=== PATIENT | female | born 1940 | race Caucasian/White ===

== ENCOUNTER 2016-10-01 23:58 | Inpatient (IN) | payer OTHER ==
[~2016-10-01] VITALS: Ht 157.5 cm; Wt 91.0 kg
[~2016-10-01 23:58] MED LIST: ADVAIR 500/501 DISK IH; ASPIR 8181 M1 PO; AVAPRO150 MG PO; AVAPRO300 MG PO; BACTRIM,SEPT1 TABLET PO; BYETTA10 MCG/0.0 SQ; CEFTIN500 MG PO; CELEXA20 MG PO; CIPRO500 MG PO; DITROPAN XL10 MG PO; DONEPEZIL HCL5 MG PO; ERGOCALCIF50000 UNIT PO; FLONASE16 G1 BOTH NARES; FLONASE16 G1 NS; FUROSEMIDE20 MG PO; GLIMEPIRIDE2 MG PO; GLUCOPHAGE1000 MG PO; GLUCOPHAGE500 MG PO; INDOMETHACIN50 MG PO; JANUVIA25 M1 PO; LANTUS 3 M100 UNITS1 SC; LEVETIRACETAM250 MG PO; LEVOTHYROXINE50 MCG PO; LIPITOR20 MG PO; METOPROLOL TAR100 MG PO; NAPROSYN500 MG PO; NEXIUM20 MG PO; NEXIUM40 MG PO; NOVOLOG 10100 UNITS/ SC; OMEPRAZOLE40 M1 PO; PROAIR HFA8.5 GM IH; PYRIDIUM200 MG PO; SINGULAIR10 MG PO; SPIRIVA1 INHALATI IH; SYMBICORT60 INHALAT IH; SYNTHROID100 MCG PO; THEO-DUR,THEOC200 MG PO; THEOPHYLLINE A200 M1 PO; TIROSINT100 MCG PO; TOVIAZ8 MG PO; TYLENOL ARTHRI650 MG PO; ULTRAM50 MG PO; VITAMIN D50000 UNI1 PO; VYTORIN 10-401 EACH PO
[2016-10-02 00:48] LABS: HEMATOCRIT 46.9 % (36.0-46.0); MCH 29.3 PG (29.0-34.0); MCHC 33.5 G/DL (30.0-36.0); MCV 87.7 FL (83-99); MEAN PLAT.VOLUME 11.4 uM^3 (9.5-12.4); PLATELET COUNT 117 K/uL (156-360); RBC DIS.WIDTH-CV 14.5 % (11.8-14.6); RBC DIS.WIDTH-SD 45.6 % (39-53); RED BLOOD COUNT 5.35 M/uL (3.80-5.20); WHITE BLOOD COUNT 9.3 K/uL (4.1-10.2)
[2016-10-02 00:56] LABS: CHLORIDE 101 mEq/L (99-109); POTASSIUM 4.1 mEq/L (3.7-5.4); SODIUM 138 mEq/L (136-147)
[2016-10-02 00:59] LABS: GLUCOSE 264 mg/dL (70-99)
[2016-10-02 01:00] LABS: ANION GAP 13 MEQ/L (2-14)
[2016-10-02 01:01] LABS: INTER. NORMALIZED RATIO 1.1; PROTHROMBIN TIME 11.6 (9.2-11.2); PTT 20.7 (25-32); TOTAL BILIRUBIN 0.7 mg/dL (0.0-1.0)
[2016-10-02 01:02] LABS: ALKALINE PHOSPHATASE 86 IU/L (3-129); GFR ESTIMATE (CALCULATED) > 59 mL/min/
[2016-10-02 01:03] LABS: UREA NITROGEN (BUN) 12 mg/dL (9-23)
[2016-10-02 01:06] LABS: LIPASE 7 U/L (1.0-51.0)
[2016-10-02 01:08] LABS: TROP-I INTERPRETATION NEGATIVE; TROPONIN-I < 0.01 ng/mL (0.0-0.30)
[2016-10-02 01:39] LABS: ADD MIUA? YES; BILIRUBIN NEGATIVE; BLOOD LARGE; COLOR YELLOW ((YELLOW)); GLUCOSE (STRIP) >=500; KETONES 20; LEUKOCYTES LARGE; NITRITE NEGATIVE; PROTEIN (STRIP) 30; SPECIFIC GRAVITY 1.015 (1.000-1.030); UROBILINOGEN 0.2 MG/DL (0.2-1.0)
[2016-10-02 01:50] LABS: BACTERIA 1+ /HPF; EPITHELIAL CELLS NONE SEEN /HPF; MUCUS TRACE /LPF; RED BLOOD CELLS 40-50 /HPF (0-5); UCUL ADDED? YES; WHITE BLOOD CELLS TNTC /HPF (0-5)
[2016-10-02 08:00] VITALS: BP 156/88
[2016-10-02 09:33] LABS: POINT-OF-CARE METER ID UU13113807
[2016-10-02 12:00] VITALS: BP 153/79
[2016-10-02 12:41] LABS: POINT-OF-CARE METER ID UU13113807
[2016-10-02] MEDS ORDERED: LIPITOR10 MG PO (13:30)
[2016-10-02] MEDS ORDERED: NOVOLIN,HU100 UNITS/ SC (13:38)
[2016-10-02] MEDS ORDERED: NORTRIPTYLINE H10 MG PO (13:39)
[2016-10-02] MEDS ORDERED: CORTIZONE-10 PL57 GM TP (13:39)
[2016-10-02 16:00] VITALS: BP 141/69
[2016-10-02 16:55] LABS: POINT-OF-CARE METER ID UU13113807
[2016-10-02 20:30] VITALS: BP 117/63
[2016-10-02 21:35] LABS: POINT-OF-CARE METER ID UU13113807
[2016-10-03] VITALS (7 sets, daily range): BP systolic 124–166; BP diastolic 64–77
[2016-10-03 08:14] LABS: HEMATOCRIT 44.2 % (36.0-46.0); MCV 87.7 FL (83-99); MEAN PLAT.VOLUME 10.3 uM^3 (9.5-12.4); RBC DIS.WIDTH-CV 14.6 % (11.8-14.6); RBC DIS.WIDTH-SD 46.5 % (39-53); RED BLOOD COUNT 5.04 M/uL (3.80-5.20); WHITE BLOOD COUNT 7.2 K/uL (4.1-10.2)
[2016-10-03 08:18] LABS: PLATELET COUNT 156 K/uL (156-360)
[2016-10-03 08:31] LABS: POINT-OF-CARE METER ID UU13113807
[2016-10-03 08:33] LABS: ALKALINE PHOSPHATASE 73 IU/L (3-129); ANION GAP 9 MEQ/L (2-14); CHLORIDE 103 MEQ/L (99-109); GFR ESTIMATE (CALCULATED) > 59 mL/min/; GLUCOSE 224 mg/dL (70-99); HDL CHOLESTEROL 26 MG/DL (Desirable>=50); LDL CHOLESTEROL 40 mg/dL (Desirable<100); NON-HDL CHOLESTEROL 108 mg/dL (Desirable<160); POTASSIUM 4.2 MEQ/L (3.7-5.4); SAMPLE HEMOLYSIS CHECK 0; SAMPLE ICTERIC CHECK 0; SAMPLE LIPEMIA CHECK 0; SODIUM 135 MEQ/L (136-147); TOTAL BILIRUBIN 0.7 MG/DL (0.0-1.0); TOTAL CHOLESTEROL 134 mg/dL (Desirable<200); TRIGLYCERIDES 342 MG/DL (Normal: <150); UREA NITROGEN (BUN) 8 mg/dL (9-23)
[2016-10-03 09:10] LABS: Estimated Average Glucose 226 mg/dL (70-123); HEMOGLOBIN A1c (GLYCOHEMOGLOB) 9.5 % HGB (Below 5.7)
[2016-10-03 12:33] LABS: POINT-OF-CARE METER ID UU13113807
[2016-10-03 16:23] LABS: POINT-OF-CARE METER ID UU13113807
[2016-10-03 21:13] LABS: POINT-OF-CARE METER ID UU13113807
[2016-10-04 04:09] VITALS: BP 153/69
[2016-10-04 07:35] LABS: MCH 29.1 PG (29.0-34.0); MCV 88.1 FL (83-99); MEAN PLAT.VOLUME 10.4 uM^3 (9.5-12.4); NRBC (%) 0.3 /100 WBC (0-0); PLATELET COUNT 152 K/uL (156-360); RBC DIS.WIDTH-CV 14.5 % (11.8-14.6); RBC DIS.WIDTH-SD 46.8 % (39-53); RED BLOOD COUNT 4.54 M/uL (3.80-5.20); WHITE BLOOD COUNT 6.3 K/uL (4.1-10.2)
[2016-10-04 08:01] LABS: ANION GAP 7 MEQ/L (2-14); CHLORIDE 106 MEQ/L (99-109); GFR ESTIMATE (CALCULATED) > 59 mL/min/; GLUCOSE 210 mg/dL (70-99); POTASSIUM 4.1 MEQ/L (3.7-5.4); SAMPLE HEMOLYSIS CHECK 0; SAMPLE ICTERIC CHECK 0; SAMPLE LIPEMIA CHECK 0; SODIUM 136 MEQ/L (136-147); UREA NITROGEN (BUN) 9 mg/dL (9-23)
[2016-10-04 08:30] VITALS: BP 136/66
[2016-10-04 08:30] LABS: POINT-OF-CARE METER ID UU13113807
[2016-10-04 12:25] LABS: POINT-OF-CARE METER ID UU13113807
[2016-10-04 12:30] VITALS: BP 130/72
[2016-10-04 16:48] LABS: POINT-OF-CARE METER ID UU13113807
[2016-10-04 16:55] VITALS: BP 129/74
[2016-10-04 20:27] VITALS: BP 133/65
[2016-10-04 21:26] LABS: POINT-OF-CARE METER ID UU13113807
[2016-10-04 21:36] LABS: C DIFF TOXIN NEGATIVE (NEGATIVE)
[2016-10-04 21:39] LABS: PROBE CHECK PASS; SPECIMEN PROCESSING CONTROL PASS
[2016-10-04 23:53] VITALS: BP 140/60
[2016-10-05 04:17] VITALS: BP 147/77
[2016-10-05 06:29] LABS: POINT-OF-CARE METER ID UU13113807
[2016-10-05 07:34] LABS: HEMATOCRIT 41.5 % (36.0-46.0); MCH 29.2 PG (29.0-34.0); MCHC 33.7 G/DL (30.0-36.0); MCV 86.6 FL (83-99); MEAN PLAT.VOLUME 10.3 uM^3 (9.5-12.4); PLATELET COUNT 155 K/uL (156-360); RBC DIS.WIDTH-CV 14.4 % (11.8-14.6); RBC DIS.WIDTH-SD 45.3 % (39-53); RED BLOOD COUNT 4.79 M/uL (3.80-5.20); WHITE BLOOD COUNT 6.8 K/uL (4.1-10.2)
[2016-10-05 07:49] VITALS: BP 145/73
[2016-10-05 07:57] LABS: ANION GAP 7 MEQ/L (2-14); CHLORIDE 106 MEQ/L (99-109); GFR ESTIMATE (CALCULATED) > 59 mL/min/; GLUCOSE 184 mg/dL (70-99); POTASSIUM 3.8 MEQ/L (3.7-5.4); SAMPLE HEMOLYSIS CHECK 0; SAMPLE ICTERIC CHECK 0; SAMPLE LIPEMIA CHECK 0; SODIUM 137 MEQ/L (136-147); UREA NITROGEN (BUN) 7 mg/dL (9-23)
[2016-10-05 12:00] VITALS: BP 184/90
[2016-10-05 12:36] LABS: POINT-OF-CARE METER ID UU13113807; POINT-OF-CARE USER ID 606021404
[2016-10-05 16:00] VITALS: BP 137/85
[2016-10-05 16:58] LABS: POINT-OF-CARE METER ID UU13113807; POINT-OF-CARE USER ID 606021404
[2016-10-05 20:00] VITALS: BP 182/85
[2016-10-05 21:41] LABS: POINT-OF-CARE METER ID UU13113807
[2016-10-06] VITALS (7 sets, daily range): BP systolic 150–197; BP diastolic 76–94
[2016-10-06 08:18] LABS: POINT-OF-CARE METER ID UU13113807; POINT-OF-CARE USER ID 606021404
[2016-10-06 11:52] LABS: POINT-OF-CARE METER ID UU13113807; POINT-OF-CARE USER ID 606021404
[2016-10-06 17:05] LABS: POINT-OF-CARE METER ID UU13113807
[2016-10-06 21:35] LABS: POINT-OF-CARE METER ID UU13113807
[2016-10-07 03:20] VITALS: BP 174/85
[2016-10-07 08:00] VITALS: BP 161/73
[2016-10-07 08:26] LABS: POINT-OF-CARE METER ID UU13113807
[2016-10-07 11:56] LABS: POINT-OF-CARE METER ID UU13113807
[2016-10-07 12:03] VITALS: BP 149/73
[2016-10-07] MEDS ORDERED: BACTRIM,SEPT1 TABLET PO (13:52)
[2016-10-07] MEDS ORDERED: FLUCONAZOLE100 MG PO (13:52)
[2016-10-07] MEDS ORDERED: LIPITOR10 MG PO (13:53)
[2016-10-07] MEDS ORDERED: HALDOL2 MG PO (13:53)
[2016-10-07] MEDS ORDERED: DOCUSATE SODIU100 MG PO (13:54)
[2016-10-07] MEDS ORDERED: FAMOTIDINE20 MG PO (13:54)
[2016-10-07] MEDS ORDERED: FLORASTOR250 MG PO (13:54)
[2016-10-07] MEDS ORDERED: NOVOLOG PE100 UNITS/ SC (13:55)
[2016-10-07 15:06] VITALS: BP 165/80
== END 2016-10-07 15:48 | DRG 872 ==
LOC: EME → EDBD 23:58 → EME 23:58 → EDOF 10-02 04:33 → 4SOUTH 10-02 04:33
PROVIDERS: Emergency Medicine; Hospitalist; Internal Medicine; Internal Medicine Infectious Disease
DX: A41.9 Sepsis, unspecified organism (principal); N39.0 Urinary tract infection, site not specified; E87.2 Acidosis; N13.2 Hydronephrosis with renal and ureteral calculous obstruction; E11.65 Type 2 diabetes mellitus with hyperglycemia; E66.01 Morbid (severe) obesity due to excess calories; J44.9 Chronic obstructive pulmonary disease, unspecified; E86.0 Dehydration; I10 Essential (primary) hypertension; E78.5 Hyperlipidemia, unspecified; I25.10 Atherosclerotic heart disease of native coronary artery without angina pectoris; F01.50 Vascular dementia, unspecified severity, without behavioral disturbance, psychotic disturbance, mood disturbance, and anxiety; B36.9 Superficial mycosis, unspecified; R32 Unspecified urinary incontinence; E03.9 Hypothyroidism, unspecified; G40.909 Epilepsy, unspecified, not intractable, without status epilepticus; Z68.36 Body mass index [BMI] 36.0-36.9, adult; Z66 Do not resuscitate; Z90.49 Acquired absence of other specified parts of digestive tract; Z95.5 Presence of coronary angioplasty implant and graft; I25.2 Old myocardial infarction; Z86.73 Personal history of transient ischemic attack (TIA), and cerebral infarction without residual deficits
CPT/HCPCS: 70450; 71020; 71250; 73502; 74000; 74176; 80048; 80053; 80061; 81003; 82948; 83036; 83605; 83690; 84484; 85027; 85610; 85730; 87040; 87086; 87106; 87493; 92523 GN; 93005; 99202; 99281; 99285; J0696; J1630; J1644; J1815; J1956; J2060; J7030; J7050

== ENCOUNTER 2016-11-20 12:44 | Inpatient (IN) | payer OTHER ==
[~2016-11-20] VITALS: Ht 152.4 cm; Wt 93.5 kg
[~2016-11-20 12:44] MED LIST changes: +CORTIZONE-10 PL57 GM TP; +DOCUSATE SODIU100 MG PO; +FAMOTIDINE20 MG PO; +FLORASTOR250 MG PO; +FLUCONAZOLE100 MG PO; +HALDOL2 MG PO; +LIPITOR10 MG PO; +NORTRIPTYLINE H10 MG PO; +NOVOLIN,HU100 UNITS/ SC; +NOVOLOG PE100 UNITS/ SC
[2016-11-20 14:33] LABS: EOSINOPHIL (%) 0.1 % (0-5); HEMATOCRIT 44.3 % (36.0-46.0); IMMATURE GRANULOCYTE (%) 0.2 % (0.0-0.7); INSTRUMENT ABS NEUTROPHIL CT 6.6 K/uL; MCH 29.4 PG (29.0-34.0); MCV 89.3 FL (83-99); MEAN PLAT.VOLUME 11.3 uM^3 (9.5-12.4); MONOCYTE (%) 8.3 % (3-12); MONOCYTE COUNT 0.7 K/uL (0-0.8); NEUTROPHIL (%) 79.1 % (45-76); NEUTROPHIL COUNT 6.6 K/uL (1.8-6.4); PLATELET COUNT 165 K/uL (156-360); RBC DIS.WIDTH-CV 15.5 % (11.8-14.6); RBC DIS.WIDTH-SD 50.7 % (39-53); RED BLOOD COUNT 4.96 M/uL (3.80-5.20); WHITE BLOOD COUNT 8.3 K/uL (4.1-10.2)
[2016-11-20 14:43] LABS: CHLORIDE 102 mEq/L (99-109); POTASSIUM 3.8 mEq/L (3.7-5.4); SODIUM 136 mEq/L (136-147)
[2016-11-20 14:45] LABS: GLUCOSE 285 mg/dL (70-99)
[2016-11-20 14:46] LABS: ANION GAP 9 MEQ/L (2-14)
[2016-11-20 14:47] LABS: TOTAL BILIRUBIN 0.9 mg/dL (0.0-1.0)
[2016-11-20 14:49] LABS: ALKALINE PHOSPHATASE 89 IU/L (3-129); GFR ESTIMATE (CALCULATED) > 59 mL/min/
[2016-11-20 14:50] LABS: UREA NITROGEN (BUN) 14 mg/dL (9-23)
[2016-11-20 14:51] LABS: ADD MIUA? YES; BILIRUBIN NEGATIVE; BLOOD LARGE; COLOR YELLOW ((YELLOW)); GLUCOSE (STRIP) >=500; KETONES NEGATIVE; LEUKOCYTES LARGE; NITRITE POSITIVE; PROTEIN (STRIP) 30; SPECIFIC GRAVITY 1.016 (1.000-1.030); UROBILINOGEN 0.2 MG/DL (0.2-1.0)
[2016-11-20 15:22] LABS: BACTERIA 3+ /HPF; CASTS NONE SEEN /LPF; CRYSTALS NONE SEEN; EPITHELIAL CELLS RARE /HPF; MUCUS NONE SEEN /LPF; RED BLOOD CELLS 15-20 /HPF (0-5); UCUL ADDED? YES; WHITE BLOOD CELLS TNTC /HPF (0-5)
[2016-11-20] MEDS ORDERED: LIPITOR40 MG PO (16:13)
[2016-11-20] MEDS ORDERED: SYMBICORT60 INHALAT IH (16:17)
[2016-11-20] MEDS ORDERED: OMEPRAZOLE40 M1 PO (16:17)
[2016-11-20] MEDS ORDERED: DONEPEZIL HCL5 MG PO (16:18)
[2016-11-20] MEDS ORDERED: FUROSEMIDE20 MG PO (16:18)
[2016-11-20] MEDS ORDERED: TYLENOL ARTHRI650 MG PO (16:18)
[2016-11-20] MEDS ORDERED: METFORMIN HCL1000 MG PO (16:19)
[2016-11-20] MEDS ORDERED: ADVIL200 MG PO (16:19)
[2016-11-20 19:00] VITALS: BP 150/71
[2016-11-20 19:03] VITALS: BP 150/71
[2016-11-20 20:12] LABS: POINT-OF-CARE METER ID UU14174225
[2016-11-21] VITALS: BP 130/69
[2016-11-21 00:07] LABS: POINT-OF-CARE METER ID UU14174225
[2016-11-21 04:00] VITALS: BP 118/56
[2016-11-21 08:01] VITALS: BP 108/58
[2016-11-21 11:25] VITALS: BP 126/64
[2016-11-21 12:06] LABS: POINT-OF-CARE METER ID UU14188625
[2016-11-21 14:55] VITALS: BP 110/86
[2016-11-21 16:52] LABS: POINT-OF-CARE METER ID UU14188625
[2016-11-21 20:00] VITALS: BP 110/86
[2016-11-22] VITALS (7 sets, daily range): BP systolic 108–142; BP diastolic 55–78
[2016-11-22 12:24] LABS: POINT-OF-CARE METER ID UU14174225
[2016-11-22 14:21] LABS: C DIFF TOXIN NEGATIVE (NEGATIVE)
[2016-11-22 14:23] LABS: PROBE CHECK PASS; SPECIMEN PROCESSING CONTROL PASS
[2016-11-22 21:11] LABS: POINT-OF-CARE METER ID UU14174225
[2016-11-23 03:43] VITALS: BP 127/73
[2016-11-23 07:58] VITALS: BP 120/63
[2016-11-23 11:53] VITALS: BP 110/65
[2016-11-23] MEDS ORDERED: NOVOLIN,HU100 UNITS/ SC (14:22)
== END 2016-11-23 16:13 | disposition home or self-care (01) | DRG 948 ==
LOC: EME → EDBD 12:44 → 5SOUTH 15:42 → EDOF 15:42 → 5SOUTH 18:58
PROVIDERS: Emergency Medicine; Internal Medicine; Physician Assistant Medical
DX: R41.82 Altered mental status, unspecified (principal); N30.00 Acute cystitis without hematuria; E87.2 Acidosis; R65.10 Systemic inflammatory response syndrome (SIRS) of non-infectious origin without acute organ dysfunction; I10 Essential (primary) hypertension; F03.90 Unspecified dementia, unspecified severity, without behavioral disturbance, psychotic disturbance, mood disturbance, and anxiety; E11.9 Type 2 diabetes mellitus without complications; Z66 Do not resuscitate; R09.02 Hypoxemia; I25.10 Atherosclerotic heart disease of native coronary artery without angina pectoris; G30.8 Other Alzheimer's disease; R41.0 Disorientation, unspecified; Z87.440 Personal history of urinary (tract) infections; E78.5 Hyperlipidemia, unspecified; K21.9 Gastro-esophageal reflux disease without esophagitis; J45.909 Unspecified asthma, uncomplicated; J44.9 Chronic obstructive pulmonary disease, unspecified; E03.9 Hypothyroidism, unspecified; E56.9 Vitamin deficiency, unspecified; Z95.5 Presence of coronary angioplasty implant and graft; Z79.4 Long term (current) use of insulin
CPT/HCPCS: 71010; 80053; 81003; 82948; 83605; 85025; 87040; 87077; 87086; 87186; 87493; 94640; 94640 76; 94760; 94799; 99281; 99284; J0696; J1644; J1815; J7030; J7050

== ENCOUNTER 2017-03-08 00:31 | Emergency (ER) | payer OTHER ==
[~2017-03-08] VITALS: Ht 152.4 cm; Wt 90.9 kg
[~2017-03-08 00:31] MED LIST changes: +ADVIL200 MG PO; +LIPITOR40 MG PO; +METFORMIN HCL1000 MG PO
[2017-03-08 00:57] LABS: HEMATOCRIT 41.8 % (36.0-46.0); MCH 28.4 PG (29.0-34.0); MCHC 32.5 G/DL (30.0-36.0); MCV 87.3 FL (83-99); MEAN PLAT.VOLUME 10.2 uM^3 (9.5-12.4); PLATELET COUNT 203 K/uL (156-360); RBC DIS.WIDTH-CV 14.6 % (11.8-14.6); RBC DIS.WIDTH-SD 46.4 % (39-53); RED BLOOD COUNT 4.79 M/uL (3.80-5.20)
[2017-03-08 01:04] LABS: CHLORIDE 100 mEq/L (99-109); SODIUM 136 mEq/L (136-147)
[2017-03-08 01:06] LABS: GLUCOSE 314 mg/dL (70-99)
[2017-03-08 01:08] LABS: ANION GAP 11 MEQ/L (2-14); TOTAL BILIRUBIN 0.5 mg/dL (0.0-1.0)
[2017-03-08 01:10] LABS: ALKALINE PHOSPHATASE 133 IU/L (3-129); GFR ESTIMATE (CALCULATED) > 59 mL/min/
[2017-03-08 01:11] LABS: UREA NITROGEN (BUN) 13 mg/dL (9-23)
[2017-03-08 03:07] LABS: LIPASE 12 U/L (1.0-51.0)
[2017-03-08 03:10] LABS: TROP-I INTERPRETATION NEGATIVE; TROPONIN-I < 0.01 ng/mL (0.0-0.30)
[2017-03-08 04:55] LABS: ADD MIUA? YES; BILIRUBIN NEGATIVE; BLOOD LARGE; COLOR YELLOW ((YELLOW)); GLUCOSE (STRIP) 50; KETONES NEGATIVE; LEUKOCYTES LARGE; NITRITE POSITIVE; PROTEIN (STRIP) 30; SPECIFIC GRAVITY 1.016 (1.000-1.030); UROBILINOGEN 0.2 MG/DL (0.2-1.0)
[2017-03-08 05:13] LABS: WHITE BLOOD CELLS 30-40 /HPF (0-5)
[2017-03-08 05:14] LABS: BACTERIA 3+ /HPF; EPITHELIAL CELLS NONE SEEN /HPF; MUCUS NONE SEEN /LPF; UCUL ADDED? YES
[2017-03-08 05:33] LABS: POINT-OF-CARE METER ID UU13113747
[2017-03-08] MEDS ORDERED: MUPIROCIN22 GM TP (05:58)
[2017-03-08] MEDS ORDERED: CIPRO500 MG PO (05:59)
[2017-03-08 06:19] VITALS: BP 127/78
== END 2017-03-08 06:19 | disposition home or self-care (01) ==
LOC: EME 00:31
PROVIDERS: Emergency Medicine
DX: N30.91 Cystitis, unspecified with hematuria (principal); E11.65 Type 2 diabetes mellitus with hyperglycemia; S31.109A Unspecified open wound of abdominal wall, unspecified quadrant without penetration into peritoneal cavity, initial encounter; X58.XXXA Exposure to other specified factors, initial encounter; F03.90 Unspecified dementia, unspecified severity, without behavioral disturbance, psychotic disturbance, mood disturbance, and anxiety; I10 Essential (primary) hypertension; J44.9 Chronic obstructive pulmonary disease, unspecified; E03.9 Hypothyroidism, unspecified; E78.5 Hyperlipidemia, unspecified; Z90.710 Acquired absence of both cervix and uterus; Z95.5 Presence of coronary angioplasty implant and graft; Z86.73 Personal history of transient ischemic attack (TIA), and cerebral infarction without residual deficits; Z87.440 Personal history of urinary (tract) infections; Z79.84 Long term (current) use of oral hypoglycemic drugs; Z79.82 Long term (current) use of aspirin
CPT/HCPCS: 70450; 71020; 80048; 80053; 81003; 82948; 83690; 83880; 84484; 85027; 87077; 87086; 87186; 93005; 99281; 99285

== ENCOUNTER 2017-07-19 16:04 | Observation (INO) | payer OTHER ==
[~2017-07-19] VITALS: Ht 149.9 cm; Wt 88.0 kg
[~2017-07-19 16:04] MED LIST changes: +MUPIROCIN22 GM TP
[2017-07-19 21:19] LABS: APPEARANCE CLOUDY ((CLEAR)); BILIRUBIN NEGATIVE; BLOOD LARGE; COLOR YELLOW ((YELLOW)); GLUCOSE (STRIP) NEGATIVE; KETONES 20; LEUKOCYTES LARGE; NITRITE NEGATIVE; PROTEIN (STRIP) 100; SPECIFIC GRAVITY 1.016 (1.000-1.030); UROBILINOGEN 0.2 MG/DL (0.2-1.0)
[2017-07-19 21:37] LABS: BACTERIA 1+ /HPF; EPITHELIAL CELLS 1+ /HPF; MUCUS RARE /LPF; RED BLOOD CELLS TNTC /HPF (0-5); UCUL ADDED? YES; WHITE BLOOD CELLS TNTC /HPF (0-5)
[2017-07-19 21:46] LABS: HEMATOCRIT 42.5 % (36.0-46.0); HEMOGLOBIN 14.6 G/DL (11.9-15.5); MCH 29.7 PG (29.0-34.0); MCHC 34.4 G/DL (30.0-36.0); MCV 86.6 FL (83-99); PLATELET COUNT 174 K/uL (156-360); RBC DIS.WIDTH-CV 14.6 % (11.8-14.6); RBC DIS.WIDTH-SD 45.7 % (39-53); RED BLOOD COUNT 4.91 M/uL (3.80-5.20); WHITE BLOOD COUNT 8.3 K/uL (4.1-10.2)
[2017-07-19 21:55] LABS: CHLORIDE 105 mEq/L (99-109); POTASSIUM 4.3 mEq/L (3.7-5.4); SODIUM 138 mEq/L (136-147)
[2017-07-19 21:57] LABS: GLUCOSE 169 mg/dL (70-99); TOTAL PROTEIN 7.3 g/dL (6.4-8.3)
[2017-07-19 21:59] LABS: TOTAL BILIRUBIN 0.8 mg/dL (0.0-1.0)
[2017-07-19 22:01] LABS: ALKALINE PHOSPHATASE 78 IU/L (3-129); CREATININE 0.7 mg/dL (0.6-1.3); GFR ESTIMATE (CALCULATED) > 59 mL/min/
[2017-07-19 22:02] LABS: UREA NITROGEN (BUN) 12 mg/dL (9-23)
[2017-07-19 22:03] LABS: AST (GOT) 26 IU/L (2-34)
[2017-07-19 22:04] LABS: ALT (GPT) 23 IU/L (3-49)
[2017-07-20] MEDS ORDERED: VITAMIN D31000 UNI2 PO (00:24)
[2017-07-20] MEDS ORDERED: VICTOZA0.6 MG/0.1 SC (00:30)
[2017-07-20] MEDS ORDERED: QUETIAPINE FUMA50 MG PO (00:31)
[2017-07-20 06:03] LABS: BASOPHIL (%) 0.5 % (0-1); EOSINOPHIL (%) 1.5 % (0-5); EOSINOPHIL COUNT 0.1 K/uL (0-0.3); HEMATOCRIT 40.6 % (36.0-46.0); HEMOGLOBIN 13.5 G/DL (11.9-15.5); IMMATURE GRANULOCYTE (%) 0.1 % (0.0-0.7); LYMPHOCYTE COUNT 2.5 K/uL (1.0-2.8); MCHC 33.3 G/DL (30.0-36.0); MCV 87.1 FL (83-99); MONOCYTE COUNT 0.9 K/uL (0-0.8); NEUTROPHIL (%) 58.9 % (45-76); PLATELET COUNT 152 K/uL (156-360); RBC DIS.WIDTH-CV 14.7 % (11.8-14.6); RBC DIS.WIDTH-SD 46.4 % (39-53); RED BLOOD COUNT 4.66 M/uL (3.80-5.20); WHITE BLOOD COUNT 8.5 K/uL (4.1-10.2)
[2017-07-20 06:43] LABS: HDL CHOLESTEROL 24 MG/DL (Desirable>=50); LDL CHOLESTEROL 44 mg/dL (Desirable<100); NON-HDL CHOLESTEROL 68 mg/dL (Desirable<160); TOTAL CHOLESTEROL 92 mg/dL (Desirable<200); TRIGLYCERIDES 122 MG/DL (Normal: <150)
[2017-07-20 07:05] LABS: HEMOGLOBIN A1c (GLYCOHEMOGLOB) 7.2 % HGB (Below 5.7)
[2017-07-20 14:02] VITALS: BP 131/71
[2017-07-20 14:44] LABS: C DIFF TOXIN NEGATIVE (NEGATIVE)
[2017-07-20 19:30] VITALS: BP 138/70
[2017-07-20 23:53] VITALS: BP 175/78
[2017-07-21 03:45] VITALS: BP 153/74
[2017-07-21 09:21] VITALS: BP 159/92
[2017-07-21] MEDS ORDERED: BACTRIM,SEPT1 TABLET PO (10:23)
== END 2017-07-21 15:26 | disposition home or self-care (01) ==
LOC: EME 16:04 → EDOF 23:32 → ENRESERV 23:34 → 5WEST 07-20 12:17
PROVIDERS: Hospitalist; Internal Medicine; Physician Assistant; Physician Assistant Medical
DX: N39.0 Urinary tract infection, site not specified (principal); F01.50 Vascular dementia, unspecified severity, without behavioral disturbance, psychotic disturbance, mood disturbance, and anxiety; Z86.73 Personal history of transient ischemic attack (TIA), and cerebral infarction without residual deficits; I25.10 Atherosclerotic heart disease of native coronary artery without angina pectoris; Z95.5 Presence of coronary angioplasty implant and graft; J44.9 Chronic obstructive pulmonary disease, unspecified; K91.2 Postsurgical malabsorption, not elsewhere classified; Z90.49 Acquired absence of other specified parts of digestive tract; R32 Unspecified urinary incontinence; Z87.440 Personal history of urinary (tract) infections; Z87.442 Personal history of urinary calculi; I11.0 Hypertensive heart disease with heart failure; I50.9 Heart failure, unspecified; E78.5 Hyperlipidemia, unspecified; E03.9 Hypothyroidism, unspecified; E55.9 Vitamin D deficiency, unspecified; Z90.710 Acquired absence of both cervix and uterus; G40.909 Epilepsy, unspecified, not intractable, without status epilepticus; K52.9 Noninfective gastroenteritis and colitis, unspecified; I25.2 Old myocardial infarction; E11.65 Type 2 diabetes mellitus with hyperglycemia; Z79.4 Long term (current) use of insulin; N32.81 Overactive bladder; I87.2 Venous insufficiency (chronic) (peripheral); M47.9 Spondylosis, unspecified; Z88.0 Allergy status to penicillin; Z88.5 Allergy status to narcotic agent; Z88.8 Allergy status to other drugs, medicaments and biological substances; Z91.041 Radiographic dye allergy status; Z66 Do not resuscitate
CPT/HCPCS: 70450; 71045; 71046; 80053; 80061; 81003; 82948; 83036; 83605; 85025; 85027; 87040; 87086; 87493; 92610 GN; 93005; 94640; 94640 76; 94799; 99202; 99281; 99285; G0378; G8978 GP CJ; G8979 GP CI; G8996 GN CI; G8997 GN CI; G8998 GN CI; J0696; J1644; J1815; J1953; J7030; J7050

== ENCOUNTER 2017-11-16 16:30 | Inpatient (IN) | payer OTHER ==
[~2017-11-16] VITALS: Ht 167.6 cm; Wt 87.6 kg
[~2017-11-16 16:30] MED LIST changes: +QUETIAPINE FUMA50 MG PO; +VICTOZA0.6 MG/0.1 SC; +VITAMIN D31000 UNI2 PO
[2017-11-16 17:49] LABS: BASOPHIL (%) 0.4 % (0-1); EOSINOPHIL (%) 0.8 % (0-5); EOSINOPHIL COUNT 0.1 K/uL (0-0.3); HEMATOCRIT 45.2 % (36.0-46.0); HEMOGLOBIN 15.5 G/DL (11.9-15.5); IMMATURE GRANULOCYTE (%) 0.3 % (0.0-0.7); LYMPHOCYTE (%) 10.7 % (15-42); LYMPHOCYTE COUNT 0.8 K/uL (1.0-2.8); MCH 29.7 PG (29.0-34.0); MCHC 34.3 G/DL (30.0-36.0); MCV 86.6 FL (83-99); MONOCYTE (%) 6.4 % (3-12); MONOCYTE COUNT 0.5 K/uL (0-0.8); NEUTROPHIL (%) 81.4 % (45-76); NEUTROPHIL COUNT 6.2 K/uL (1.8-6.4); PLATELET COUNT 147 K/uL (156-360); RBC DIS.WIDTH-CV 14.7 % (11.8-14.6); RBC DIS.WIDTH-SD 46.2 % (39-53); RED BLOOD COUNT 5.22 M/uL (3.80-5.20); WHITE BLOOD COUNT 7.7 K/uL (4.1-10.2)
[2017-11-16 17:58] LABS: ALBUMIN 3.9 g/dL (3.2-4.8)
[2017-11-16 17:59] LABS: CHLORIDE 106 mEq/L (99-109); POTASSIUM 3.9 mEq/L (3.7-5.4); SODIUM 139 mEq/L (136-147)
[2017-11-16 18:01] LABS: GLUCOSE 204 mg/dL (70-99); TOTAL PROTEIN 7.2 g/dL (6.4-8.3)
[2017-11-16 18:03] LABS: TOTAL BILIRUBIN 0.9 mg/dL (0.0-1.0)
[2017-11-16 18:04] LABS: ALKALINE PHOSPHATASE 98 IU/L (3-129)
[2017-11-16 18:05] LABS: CREATININE 0.7 mg/dL (0.6-1.3); GFR ESTIMATE (CALCULATED) > 59 mL/min/
[2017-11-16 18:06] LABS: AST (GOT) 15 IU/L (2-34); UREA NITROGEN (BUN) 19 mg/dL (9-23)
[2017-11-16 18:07] LABS: ALT (GPT) 22 IU/L (3-49)
[2017-11-16 18:10] LABS: TROP-I INTERPRETATION NEGATIVE; TROPONIN-I 0.01 ng/mL (0.0-0.30)
[2017-11-16 18:10] LABS: APPEARANCE CLOUDY ((CLEAR)); BILIRUBIN NEGATIVE; BLOOD LARGE; COLOR YELLOW ((YELLOW)); GLUCOSE (STRIP) 50; KETONES 5; LEUKOCYTES LARGE; NITRITE NEGATIVE; PROTEIN (STRIP) 30; SPECIFIC GRAVITY 1.019 (1.000-1.030); UROBILINOGEN 0.2 MG/DL (0.2-1.0)
[2017-11-16 18:48] LABS: EPITHELIAL CELLS 1+ /HPF; WHITE BLOOD CELLS TNTC /HPF (0-5)
[2017-11-16 18:49] LABS: BACTERIA 1+ /HPF; MUCUS NONE SEEN /LPF; UCUL ADDED? YES
[2017-11-16 18:50] LABS: URINE COMMENT YEAST W/HYPHAE
[2017-11-16] MEDS ORDERED: AVAPRO75 MG PO (21:36)
[2017-11-16] MEDS ORDERED: DEPAKOTE250 MG PO (21:41)
[2017-11-16] MEDS ORDERED: ARICEPT10 MG PO (21:41)
[2017-11-16] MEDS ORDERED: SEROQUEL50 MG PO ×2 (21:46→21:48)
[2017-11-16] MEDS ORDERED: NYAMYC60 GM TP (21:48)
[2017-11-16 23:39] VITALS: BP 165/80
[2017-11-17 01:42] LABS: C DIFF TOXIN NEGATIVE (NEGATIVE)
[2017-11-17 06:05] LABS: CHLORIDE 107 MEQ/L (99-109); CREATININE 0.7 MG/DL (0.6-1.3); GFR ESTIMATE (CALCULATED) > 59 mL/min/; GLUCOSE 221 mg/dL (70-99); POTASSIUM 3.4 MEQ/L (3.7-5.4); SODIUM 138 MEQ/L (136-147); UREA NITROGEN (BUN) 19 mg/dL (9-23)
[2017-11-17 06:06] LABS: HEMATOCRIT 39.4 % (36.0-46.0); MCH 28.9 PG (29.0-34.0); MCHC 32.5 G/DL (30.0-36.0); MCV 88.9 FL (83-99); PLATELET COUNT 142 K/uL (156-360); RBC DIS.WIDTH-CV 14.9 % (11.8-14.6); RBC DIS.WIDTH-SD 47.8 % (39-53); RED BLOOD COUNT 4.43 M/uL (3.80-5.20); WHITE BLOOD COUNT 6.5 K/uL (4.1-10.2)
[2017-11-17 06:10] LABS: HEMOGLOBIN 12.8 G/DL (11.9-15.5)
[2017-11-17 06:14] VITALS: BP 116/57
[2017-11-17 06:45] VITALS: BP 112/67
[2017-11-17 15:00] VITALS: BP 118/60
[2017-11-17 21:20] VITALS: BP 144/65
[2017-11-18] VITALS: BP 108/53
[2017-11-18 06:17] LABS: HEMATOCRIT 40.2 % (36.0-46.0); HEMOGLOBIN 12.9 G/DL (11.9-15.5); MCH 28.7 PG (29.0-34.0); MCHC 32.1 G/DL (30.0-36.0); MCV 89.3 FL (83-99); PLATELET COUNT 127 K/uL (156-360); RBC DIS.WIDTH-CV 14.9 % (11.8-14.6); RBC DIS.WIDTH-SD 48.5 % (39-53); WHITE BLOOD COUNT 5.7 K/uL (4.1-10.2)
[2017-11-18 06:37] LABS: CHLORIDE 110 MEQ/L (99-109); CREATININE 0.5 MG/DL (0.6-1.3); GFR ESTIMATE (CALCULATED) > 59 mL/min/; GLUCOSE 167 mg/dL (70-99); POTASSIUM 3.8 MEQ/L (3.7-5.4); SODIUM 141 MEQ/L (136-147); UREA NITROGEN (BUN) 11 mg/dL (9-23)
[2017-11-18 07:45] VITALS: BP 151/84
[2017-11-18] MEDS ORDERED: LOSARTAN POTASS25 MG PO (09:56)
[2017-11-18] MEDS ORDERED: KEFLEX500 MG PO (09:58)
== END 2017-11-18 14:14 | disposition hospice, home (50) | DRG 689 ==
LOC: EME 16:30 → ENRESERV 21:20 → EDOF 21:20 → 5EAST 21:20 → ENRESERV 22:22 → 5EAST 23:17
PROVIDERS: Emergency Medicine; Hospitalist; Physician Assistant
DX: N39.0 Urinary tract infection, site not specified (principal); G93.40 Encephalopathy, unspecified; J96.21 Acute and chronic respiratory failure with hypoxia; E86.0 Dehydration; E87.2 Acidosis; E11.9 Type 2 diabetes mellitus without complications; E87.6 Hypokalemia; J44.9 Chronic obstructive pulmonary disease, unspecified; F01.50 Vascular dementia, unspecified severity, without behavioral disturbance, psychotic disturbance, mood disturbance, and anxiety; I25.10 Atherosclerotic heart disease of native coronary artery without angina pectoris; I11.0 Hypertensive heart disease with heart failure; I50.9 Heart failure, unspecified; R56.9 Unspecified convulsions; E78.5 Hyperlipidemia, unspecified; Z66 Do not resuscitate; Z51.5 Encounter for palliative care; E03.9 Hypothyroidism, unspecified; K91.2 Postsurgical malabsorption, not elsewhere classified; I25.2 Old myocardial infarction; F41.9 Anxiety disorder, unspecified; I87.2 Venous insufficiency (chronic) (peripheral); K21.9 Gastro-esophageal reflux disease without esophagitis; M19.019 Primary osteoarthritis, unspecified shoulder; N32.81 Overactive bladder; R32 Unspecified urinary incontinence; Z79.51 Long term (current) use of inhaled steroids; Z79.82 Long term (current) use of aspirin; Z79.84 Long term (current) use of oral hypoglycemic drugs; Z86.73 Personal history of transient ischemic attack (TIA), and cerebral infarction without residual deficits; Z87.440 Personal history of urinary (tract) infections; Z87.442 Personal history of urinary calculi; Z90.710 Acquired absence of both cervix and uterus; Z95.5 Presence of coronary angioplasty implant and graft
CPT/HCPCS: 70450; 71045; 80048; 80053; 81003; 82948; 83605; 84484; 85025; 85027; 87040; 87086; 87493; 92610 GN; 93005; 94640; 94640 76; 94799; 99202; 99281; 99285; J0456; J0696; J1644; J1815; J7030

== ENCOUNTER 2018-01-02 13:07 | Observation (INO) | payer OTHER ==
[~2018-01-02] VITALS: Ht 167.6 cm; Wt 87.6 kg
[~2018-01-02 13:07] MED LIST changes: +ARICEPT10 MG PO; +AVAPRO75 MG PO; +DEPAKOTE500 MG PO; +KEFLEX500 MG PO; +LOSARTAN POTASS25 MG PO; +NYAMYC60 GM TP; +SEROQUEL50 MG PO
[2018-01-02 14:46] LABS: BASOPHIL (%) 0.6 % (0-1); BASOPHIL COUNT 0.1 K/uL (0-0.1); EOSINOPHIL (%) 2.5 % (0-5); EOSINOPHIL COUNT 0.2 K/uL (0-0.3); HEMATOCRIT 43.4 % (36.0-46.0); IMMATURE GRANULOCYTE (%) 0.4 % (0.0-0.7); LYMPHOCYTE (%) 26.9 % (15-42); LYMPHOCYTE COUNT 2.2 K/uL (1.0-2.8); MCH 30.2 PG (29.0-34.0); MCHC 34.6 G/DL (30.0-36.0); MCV 87.3 FL (83-99); MONOCYTE (%) 6.3 % (3-12); MONOCYTE COUNT 0.5 K/uL (0-0.8); NEUTROPHIL (%) 63.3 % (45-76); NEUTROPHIL COUNT 5.3 K/uL (1.8-6.4); PLATELET COUNT 157 K/uL (156-360); RBC DIS.WIDTH-CV 14.6 % (11.8-14.6); RBC DIS.WIDTH-SD 46.2 % (39-53); RED BLOOD COUNT 4.97 M/uL (3.80-5.20); WHITE BLOOD COUNT 8.3 K/uL (4.1-10.2)
[2018-01-02 14:58] LABS: CHLORIDE 106 mEq/L (99-109); POTASSIUM 3.8 mEq/L (3.7-5.4); SODIUM 138 mEq/L (136-147)
[2018-01-02 15:00] LABS: GLUCOSE 169 mg/dL (70-99); TOTAL PROTEIN 7.2 g/dL (6.4-8.3)
[2018-01-02 15:02] LABS: TOTAL BILIRUBIN 0.9 mg/dL (0.0-1.0)
[2018-01-02 15:03] LABS: SERUM ETHYL ALCOHOL < 10 mg/dL
[2018-01-02 15:04] LABS: ALKALINE PHOSPHATASE 104 IU/L (3-129); CREATININE 0.7 mg/dL (0.6-1.3); GFR ESTIMATE (CALCULATED) > 59 mL/min/
[2018-01-02 15:05] LABS: UREA NITROGEN (BUN) 14 mg/dL (9-23)
[2018-01-02 15:06] LABS: AST (GOT) 21 IU/L (2-34)
[2018-01-02 15:07] LABS: ALT (GPT) 24 IU/L (3-49)
[2018-01-02 16:14] LABS: APPEARANCE CLOUDY ((CLEAR)); BILIRUBIN NEGATIVE; BLOOD MODERATE; COLOR YELLOW ((YELLOW)); GLUCOSE (STRIP) NEGATIVE; KETONES NEGATIVE; LEUKOCYTES LARGE; NITRITE NEGATIVE; PROTEIN (STRIP) 30; SPECIFIC GRAVITY 1.014 (1.000-1.030); UROBILINOGEN 0.2 MG/DL (0.2-1.0)
[2018-01-02 16:18] LABS: THYROTROPIN (TSH) 2.1 MIU/L (0.4-5.5)
[2018-01-02 16:22] LABS: AMPHETAMINE NEGATIVE (500 ng/mL); BARBITURATES NEGATIVE (200 ng/mL); BENZODIAZEPINES PRESUMPTIVE POSITIVE (150 ng/mL); BUPRENORPHINE NEGATIVE (10 ng/mL); COCAINE NEGATIVE (150 ng/mL); METHADONE NEGATIVE (200 ng/mL); METHAMPHETAMINE NEGATIVE (500 ng/mL); OPIATES (MORPHINE) NEGATIVE (100 ng/mL); OXYCODONE NEGATIVE (100 ng/mL); PHENCYCLIDINE NEGATIVE (25 ng/mL); PROPOXYPHENE NEGATIVE (300 ng/mL); THC CANNABINOIDS NEGATIVE (50 ng/mL); TRICYCLIC ANTIDEPRESSANTS PRESUMPTIVE POSITIVE (300 ng/mL)
[2018-01-02 16:27] LABS: BACTERIA RARE /HPF; EPITHELIAL CELLS RARE /HPF; MUCUS NONE SEEN /LPF; UCUL ADDED? YES; WHITE BLOOD CELLS TNTC /HPF (0-5)
[2018-01-02 16:54] LABS: BENZODIAZEPINES, URINE SCREEN Negative (200 ng/mL)
[2018-01-02 22:38] VITALS: BP 180/97
[2018-01-03 03:01] VITALS: BP 142/66
[2018-01-03 09:22] VITALS: BP 187/101
[2018-01-03 12:28] VITALS: BP 160/84
[2018-01-03] MEDS ORDERED: ATIVAN0.5 MG IM (14:36)
[2018-01-03] MEDS ORDERED: QUETIAPINE FUMA50 MG PO (15:22)
[2018-01-03 15:29] VITALS: BP 168/85
== END 2018-01-03 16:43 | disposition home or self-care (01) ==
LOC: EME 13:07 → 4SOUTH 19:55 → EDOF 19:55 → ENRESERV 19:56 → 4SOUTH 22:17
PROVIDERS: Emergency Medicine
DX: N39.0 Urinary tract infection, site not specified (principal); F01.51 Vascular dementia, unspecified severity, with behavioral disturbance; R45.1 Restlessness and agitation; I69.398 Other sequelae of cerebral infarction; R53.1 Weakness; R32 Unspecified urinary incontinence; Z87.440 Personal history of urinary (tract) infections; K91.2 Postsurgical malabsorption, not elsewhere classified; G40.909 Epilepsy, unspecified, not intractable, without status epilepticus; I25.10 Atherosclerotic heart disease of native coronary artery without angina pectoris; Z95.5 Presence of coronary angioplasty implant and graft; Z87.442 Personal history of urinary calculi; I25.2 Old myocardial infarction; I11.0 Hypertensive heart disease with heart failure; I50.9 Heart failure, unspecified; E78.5 Hyperlipidemia, unspecified; E11.9 Type 2 diabetes mellitus without complications; F41.9 Anxiety disorder, unspecified; E03.9 Hypothyroidism, unspecified; N32.81 Overactive bladder; I87.2 Venous insufficiency (chronic) (peripheral); M47.816 Spondylosis without myelopathy or radiculopathy, lumbar region; E55.9 Vitamin D deficiency, unspecified; Z90.49 Acquired absence of other specified parts of digestive tract; Z90.710 Acquired absence of both cervix and uterus; Z88.0 Allergy status to penicillin; Z88.5 Allergy status to narcotic agent; Z88.8 Allergy status to other drugs, medicaments and biological substances; Z91.041 Radiographic dye allergy status; Z91.048 Other nonmedicinal substance allergy status; Z66 Do not resuscitate
CPT/HCPCS: 80053; 81003; 84443; 84999; 85025; 87086; 87641; 90839; 99281; 99285; G0378; G0480; J1630; J1644; J2060